=== PATIENT | male | born 1985 | race Hispanic/Latino ===

== ENCOUNTER 2019-03-05 15:27 | Emergency (ER) | payer SELFPAY ==
[2019-03-05 18:02] LABS: Absolute Lymphocytes (CBC) 1.8 K/uL (0.7-4.9); Absolute Monocytes 0.5 K/uL (0.1-1.3); Absolute Neutrophil 7.3 K/uL (1.8-8.0); Basophils % 0.4 % (0-1.3); Eosinophils % 2.1 % (0-4.4); Hematocrit 43.4 % (39.6-49.0); Lymphocytes % 18.6 % (15.3-44.8); MPV 7.6 fL (7.6-11.3); Monocytes % 5.3 % (3.3-12.3); RBC Red Blood Cell Count 5.17 M/uL (4.33-5.43)
[2019-03-05 18:18] LABS: BUN Blood Urea Nitrogen 11 mg/dL (7-18); Bicarbonate 24 mmol/L (21-32); Glucose Level 140 mg/dL (74-106); Potassium 3.4 mmol/L (3.5-5.1); Sodium Level 138 mmol/L (136-145)
--- NOTE | 2019-03-05 18:56 | RAD REPORT ---
EXAM DESCRIPTION: CT - Facial Bones W Con Mpr - 03/05/2019 6:42 pm CLINICAL HISTORY: Left-sided facial swelling COMPARISON: None. TECHNIQUE: During dynamic enhancement using nonionic IV contrast, axial 2 millimeter images of the f acial bones obtained. The CT scan was performed using dose optimization techniques as appropriate to a performed exam incl uding one or more of the following: Automated exposure control, adjustment of the mA and/or kV accord ing to patient size (this includes techniques or standardized protocols for targeted exams where dose is matched to indication/reason for exam) and use of iterative reconstruction technique. FINDINGS: Soft tissue edema is present or the anterior aspect of the maxilla extending to the left-s lauren superficial soft tissues. No abscess or drainable fluid collection. There is thinning and probabl e disruption of the anterior cortex of the maxilla involving teeth 8 and 9. There is lucency surround ing the roots of these 2 teeth. Infectious/inflammatory process regarding these 2 teeth is most likel y. No air in the soft tissues. No foreign body. Mucosal thickening is seen in the maxillary sinuses. No air-fluid level. No acute or destructive bone process otherwise noted. Mastoid air cells and middle ears are clear. Patient has significant left d eviation of the posterior nasal septum with right angulation of the nasal septum and nasal bone likel y from old trauma. No globe or orbital content abnormality. IMPRESSION: Infectious/inflammatory stranding in the soft tissues anterior to the maxilla extending to the left-side facial tissues. No abscess or drainable fluid collection. No air or foreign body. Infectious/inflammatory changes are suspected to arise from the upper midline teeth number 8 and 9. T here is evidence for cortical disruption along the anterior cortex and lucency surrounding each root.
--- NOTE | 2019-03-05 19:35 | ER ---
Nurse's Notes [facility] Name: Harsh Mcclain Age: 33 yrs Sex: Male : 1985 Arrival Date: 03/05/2019 Time: 15:31 Bed 28 Private MD: Diagnosis: Cellulitis of face Presentation: 03/05 15:55 Presenting complaint: Patient states: my face is swollen on my LEFT side, i noticed it tw2 last night on my lips was a little bit swollen, then this morning it was more and then throughout the day the swelling has gotten worse. Transition of care: patient was not received from another setting of care. Onset of symptoms was March 05, 2019. Risk Assessment: Do you want to hurt yourself or someone else? Patient reports no desire to harm self or others. Initial Sepsis Screen: Does the patient meet any 2 criteria? No. Patient's initial sepsis screen is negative. Does the patient have a suspected source of infection? No. Patient's initial sepsis screen is negative. Care prior to arrival: None. 15:55 Method Of Arrival: Ambulatory tw2 15:55 Acuity: LIZY 2 tw2 Triage Assessment: 15:57 General: Appears in no apparent distress. Behavior is calm, cooperative, appropriate tw2 for age. Pain: Complains of pain in left cheek, mouth and left jaw. EENT: swelling noted to LEFT side of face and mouth. Derm: Historical: - Allergies: 16:00 No Known Allergies; tw2 - Home Meds: 16:00 None [Active]; tw2 - PMHx: 16:00 None; tw2 - PSHx: 16:00 None; tw2 - Immunization history:: Adult Immunizations unknown, Last tetanus immunization: unknown. - Social history:: Smoking status: Patient uses tobacco products, denies chronic smoking, but will smoke occasionally, smokes one-half pack cigarettes per day, Patient uses alcohol, occasionally. - Ebola Screening: : Patient denies travel to an Ebola-affected area in the 21 days before illness onset. Screenin:56 Abuse screen: Denies threats or abuse. Denies injuries from another. Nutritional mg2 screening: No deficits noted. Tuberculosis screening: No symptoms or risk factors identified. Fall Risk None identified. Assessment: 16:56 General: Appears in no apparent distress. comfortable, Behavior is calm, cooperative. mg2 Pain: Denies pain. Neuro: Level of Consciousness is awake, alert, obeys commands, Oriented to person, place, time, situation. Cardiovascular: Capillary refill < 3 seconds Patient's skin is warm and dry. Respiratory: Airway is patent Respiratory effort is even, unlabored, Respiratory pattern is regular, symmetrical. GI: No signs and/or symptoms were reported involving the gastrointestinal system. : No signs and/or symptoms were reported regarding the genitourinary system. EENT: swelling in the mouth. Derm: Skin is intact, is healthy with good turgor, Skin is pink, warm \T\ dry. normal. Musculoskeletal: Swelling present in left cheek. 17:55 Reassessment: Patient appears in no apparent distress at this time. Patient and/or ca1 family updated on plan of care and expected duration. Pain level reassessed. Patient is alert, oriented x 3, equal unlabored respirations, skin warm/dry/pink. 18:54 Reassessment: Patient appears in no apparent distress at this time. Patient is alert, ca1 oriented x 3, equal unlabored respirations, skin warm/dry/pink. 19:40 Reassessment: Patient appears in no apparent distress at this time. Patient is alert, ca1 oriented x 3, equal unlabored respirations, skin warm/dry/pink. Vital Signs: 15:58 BP 124 / 71; Pulse 79; Resp 17; Temp 98.2(O); Pulse Ox 99% on R/A; Weight 92.99 kg (R); tw2 Height 5 ft. 7 in. (170.18 cm); Pain 2/10; 16:42 BP 136 / 79; Pulse 79; Resp 18 S; Temp 98.1(O); Pulse Ox 99% on R/A; ca1 17:49 BP 124 / 80; Pulse 81; Resp 19 S; Temp 98.3(O); Pulse Ox 98% on R/A; ca1 18:54 BP 131 / 85; Pulse 80; Resp 16 S; Temp 98(O); Pulse Ox 99% on R/A; ca1 19:40 BP 129 / 84; Pulse 79; Resp 17 S; Temp 98.4(O); Pulse Ox 100% on R/A; ca1 15:58 Body Mass Index 32.11 (92.99 kg, 170.18 cm) tw2 ED Course: 15:31 Patient arrived in ED. mr 15:57 Triage completed. tw2 15:57 Arm band placed on. tw2 16:56 Juan Padron PA is PHCP. cp 16:56 Candido Roberts MD is Attending Physician. cp 16:58 Patient has correct armband on for positive identification. Door closed. Noise mg2 minimized. Warm blanket given. 17:42 Evelyn Chung, RN is Primary Nurse. ca1 17:44 Radiology exam delayed due to lab results not completed at this time. (BUN/Creatinine). vm2 17:47 Initial lab(s) drawn, by me, sent to lab. First set of blood cultures drawn by me. lt1 17:50 Inserted saline lock: 20 gauge in left antecubital area, using aseptic technique. ca1 18:00 Second set of blood cultures drawn by me. ca1 18:00 No provider procedures requiring assistance completed. ca1 18:01 Missed attempt(s): 20 gauge in left forearm. lt1 18:[address] via wheelchair. nj 18:42 CT Facial Bones W/ Con \T\ Mpr In Process Unspecified. EDMS 19:33 Carlin Starr DDS is Referral Physician. cp 19:53 IV discontinued, intact, bleeding controlled, No redness/swelling at site. Pressure ca1 dressing applied. Administered Medications: 17:59 Drug: NS 0.9% 1000 ml Route: IV; Rate: 1 bolus; Site: left antecubital; ca1 19:00 Follow up: Urine output 430 ml; Response: No adverse reaction; IV Status: Completed ca1 infusion 19:26 Drug: Clindamycin 900 mg Route: IVPB; Infused Over: 30 mins; Site: left antecubital; mg2 Output: 19:00 Urine: 430ml; Total: 430ml. ca1 Outcome: 19:34 Discharge ordered by MD. cp 19:53 Discharged to home ambulatory. ca1 19:53 Condition: stable 19:53 Discharge instructions given to patient, Instructed on discharge instructions, follow up and referral plans. medication usage, Demonstrated understanding of instructions, follow-up care, medications, Prescriptions given X 2. 19:54 Patient left the ED. ca1 Signatures: Dispatcher [employer] EDNE Marlys Ayala mr Juan Padron PA PA cp Wise, Tara, WOJCIECH RN 2 Rich Galeana [facility] Moises Ferraro, WOJCIECH RN mg2 Evelyn Chung RN RN ca1 Amanda Gibson lt1 Corrections: (The following items were deleted from the chart) 16:04 15:58 Pulse 79bpm; Resp 17bpm; Pulse Ox 99% RA; Temp 98.2F Oral; 92.99 kg Reported; tw2 Height 5 ft. 7 in.; BMI: 32.1; Pain 2/10; tw2
--- NOTE | 2019-03-05 19:35 | EDPHYS ---
Physician Documentation [facility] Name: Harsh Mcclain Age: 33 yrs Sex: Male : 1985 Arrival Date: 03/05/2019 Time: 15:31 Bed 28 Private MD: ED Physician Candido Roberts HPI: 03/05 17:30 This 33 yrs old Male presents to ER via Ambulatory with complaints of Facial cp Swelling. 17:30 swelling of left side of face. Onset: The symptoms/episode began/occurred yesterday, cp and became worse this morning. 17:30 Severity of symptoms: in the emergency department the symptoms are unchanged despite cp home interventions. Historical: - Allergies: 16:00 No Known Allergies; tw2 - Home Meds: 16:00 None [Active]; tw2 - PMHx: 16:00 None; tw2 - PSHx: 16:00 None; tw2 - Immunization history:: Adult Immunizations unknown, Last tetanus immunization: unknown. - Social history:: Smoking status: Patient uses tobacco products, denies chronic smoking, but will smoke occasionally, smokes one-half pack cigarettes per day, Patient uses alcohol, occasionally. - Ebola Screening: : Patient denies travel to an Ebola-affected area in the 21 days before illness onset. ROS: 17:40 Constitutional: Negative for body aches, chills, fever, poor PO intake. cp 17:40 Eyes: Negative for injury, pain, redness, and discharge. cp 17:40 ENT: Negative for drainage from ear(s), ear pain, sore throat, difficulty swallowing, difficulty handling secretions. 17:40 Cardiovascular: Negative for chest pain, palpitations. 17:40 Respiratory: Negative for cough, shortness of breath, wheezing. 17:40 Abdomen/GI: Negative for abdominal pain, nausea, vomiting, and diarrhea. 17:40 Skin: Positive for swelling, of the left facial cheek and left upper lip, Negative for erythema, rash. 17:40 Neuro: Negative for altered mental status, headache, weakness. 17:40 All other systems are negative. Exam: 17:45 Constitutional: The patient appears in no acute distress, alert, awake, non-toxic, well cp developed, well nourished. 17:45 Head/face: Noted is swelling, that is moderate, of the left cheek and left upper lip, cp Sinus tenderness, that is mild, is located over the left maxillary sinus. 17:45 Eyes: Periorbital structures: appear normal, Pupils: equal, round, and reactive to light and accomodation, Extraocular movements: intact throughout, Conjunctiva: normal, no exudate, no injection, Sclera: no appreciated abnormality, Lids and lashes: appear normal, bilaterally. 17:45 ENT: External ear(s): are unremarkable, Ear canal(s): are normal, clear, TM's: bulging, is not appreciated, bilaterally, dullness, bilaterally, erythema, is not appreciated, bilaterally, Nose: is normal, Mouth: Lips: moist, Oral mucosa: moist, Tongue: is normal, abscess, is not appreciated, Posterior pharynx: Airway: no evidence of obstruction, patent, Tonsils: are normal in appearance, swelling, is not appreciated, erythema, that is mild, exudate, is not appreciated, Voice: is normal. 17:45 Neck: External neck: is normal, ROM/movement: is normal, is supple, without pain, no range of motions limitations, no nuchal rigidity. 17:45 Chest/axilla: Inspection: normal, Palpation: is normal, no crepitus, no tenderness. 17:45 Cardiovascular: Rate: normal, Rhythm: regular. 17:45 Respiratory: the patient does not display signs of respiratory distress, Respirations: normal, no use of accessory muscles, no retractions, no splinting, no tachypnea, labored breathing, is not present, Breath sounds: are clear throughout, no decreased breath sounds, no stridor, no wheezing. 17:45 Abdomen/GI: Exam negative for discomfort, distension, guarding, Inspection: abdomen appears normal. 17:45 Skin: no rash present. Vital Signs: 15:58 BP 124 / 71; Pulse 79; Resp 17; Temp 98.2(O); Pulse Ox 99% on R/A; Weight 92.99 kg (R); tw2 Height 5 ft. 7 in. (170.18 cm); Pain 2/10; 16:42 BP 136 / 79; Pulse 79; Resp 18 S; Temp 98.1(O); Pulse Ox 99% on R/A; ca1 17:49 BP 124 / 80; Pulse 81; Resp 19 S; Temp 98.3(O); Pulse Ox 98% on R/A; ca1 18:54 BP 131 / 85; Pulse 80; Resp 16 S; Temp 98(O); Pulse Ox 99% on R/A; ca1 19:40 BP 129 / 84; Pulse 79; Resp 17 S; Temp 98.4(O); Pulse Ox 100% on R/A; ca1 15:58 Body Mass Index 32.11 (92.99 kg, 170.18 cm) tw2 MDM: 16:56 Patient medically screened. cp 19:30 Data reviewed: vital signs, nurses notes, lab test result(s), radiologic studies, CT cp scan, I have discussed the patient's presentation/case with the attending Emergency Department Physician; and as a result, I will discharge patient. 19:30 Differential Diagnosis dental abscess, facial cellulitis, allergic reaction. cp Counseling: I had a detailed discussion with the patient and/or guardian regarding: the historical points, exam findings, and any diagnostic results supporting the discharge/admit diagnosis, lab results, radiology results, the need for outpatient follow up, a dentist, maxillary facial surgeon, to return to the emergency department if symptoms worsen or persist or if there are any questions or concerns that arise at home. Response to treatment: the patient's symptoms have mildly improved after treatment, and as a result, I will discharge patient. 03/05 17:26 Order name: CBC with Diff; Complete Time: 18:33 cp 03/05 17:26 Order name: BMP; Complete Time: 18:33 cp 03/05 18:33 Interpretation: Normal except: K 3.4; GLUC 140. cp 03/05 17:26 Order name: CT Facial Bones W/ Con \T\ Mpr; Complete Time: 19:11 cp 03/05 17:26 Order name: CRP; Complete Time: 18:33 cp 03/05 17:26 Order name: Sed Rate; Complete Time: 18:33 cp 03/05 17:26 Order name: Blood Culture Adult (2) cp 03/05 17:26 Order name: IV; Complete Time: 17:54 cp Administered Medications: 17:59 Drug: NS 0.9% 1000 ml Route: IV; Rate: 1 bolus; Site: left antecubital; ca1 19:00 Follow up: Urine output 430 ml; Response: No adverse reaction; IV Status: Completed ca1 infusion 19:26 Drug: Clindamycin 900 mg Route: IVPB; Infused Over: 30 mins; Site: left antecubital; mg2 Disposition: 20:00 Chart complete. cp 03/06 19:17 Co-signature as Attending Physician, Candido Roberts MD I agree with the assessment and [facility] plan of care. Disposition: 03/05/19 19:34 Discharged to Home. Impression: Cellulitis of face. - Condition is Stable. - Discharge Instructions: Cellulitis, Adult. - Prescriptions for Clindamycin HCl 300 mg Oral Capsule - take 1 capsule by ORAL route every 6 hours for 10 days; 40 capsule. Ibuprofen 800 mg Oral Tablet - take 1 tablet by ORAL route every 8 hours As needed take with food; 30 tablet. - Medication Reconciliation Form, Thank You Letter, Antibiotic Education, Prescription Opioid Use form. - Follow up: Carlin Starr DDS; When: 2 - 3 days; Reason: Recheck today's complaints. - Problem is new. - Symptoms have improved. Signatures: Dispatcher [employer] EDMS Candido Roberts MD MD kdr Juan Padron PA PA cp Tara Ruano RN RN tw2 Moises Ferraro RN RN mg2 Evelyn Chung RN RN ca1 Corrections: (The following items were deleted from the chart) 03/05 19:54 19:34 03/05/2019 19:34 Discharged to Home. Impression: Cellulitis of face. Condition is ca1 Stable. Forms are Medication Reconciliation Form, Thank You Letter, Antibiotic Education, Prescription Opioid Use. Follow up: Carlin Starr; When: 2 - 3 days; Reason: Recheck today's complaints. Problem is new. Symptoms have improved. cp
[2019-03-05] MEDS ORDERED: CLINDAMYCIN 900MG/D5W 900 MG/50 ML IVPB IV ONE (19:37)
== END 2019-03-05 19:54 | disposition home or self-care (01) ==
LOC: ER 15:27
DX: L03.211 Cellulitis of face (principal); F17.210 Nicotine dependence, cigarettes, uncomplicated
CPT/HCPCS: 36415; 70487; 76377; 80048; 85025; 85652; 86140; 87040; 96361; 96374; 99284; Q9967